=== PATIENT | male | born 1980 | race Caucasian/White ===

== ENCOUNTER 2021-01-05 14:41 | Emergency (ER) | payer OTHER ==
--- NOTE | 2021-01-05 14:56 | ED Physician Documentation ---
PD HPI CHEST PAIN - Stated complaint Stated Complaint: LEFT ARM PX, CP, SOA - Chief complaint Chief Complaint: Cardiac - History obtained from History obtained from: Patient - History of Present Illness Timing - onset: How many hours ago (1) Timing - onset during: Rest Timing - duration: Hours (1) Timing - details: Abrupt onset (while at rest, without injury), Still present Quality: Aching, Sharp, Pain Location: Left chest Radiation: Back Improved by: No: Rest Worsened by: Inspiration, Movement. No: Eating, Palpation Associated symptoms: Shortness of air. No: Nausea, Vomiting, Feeling faint / dizzy, Palpitations, Cough Similar symptoms before: Has not had sx before Recently seen: Not recently seen Review of Systems Constitutional: denies: Fever, Chills Nose: denies: Rhinorrhea / runny nose, Congestion Throat: denies: Sore throat Cardiac: denies: Palpitations, Pedal edema, Calf pain Respiratory: denies: Cough, Wheezing GI: denies: Abdominal Pain, Nausea, Vomiting, Diarrhea Skin: denies: Rash, Lesions Neurologic: denies: Altered mental status, Headache PD PAST MEDICAL HISTORY - Past Medical History Cardiovascular: Atrial fibrillation Respiratory: None Neuro: None Endocrine/Autoimmune: None GI: None - Past Surgical History Past Surgical History: Yes HEENT: Tonsil/Adenoidectomy - Present Medications Home Medications: Ambulatory Orders Medication Instructions Recorded Confirmed Docusate Sodium 100Mg Capsule 100 mg PO DAILY #20 cap 01/05/21 [Colace 100Mg Capsule] Ibuprofen [Motrin] 600 mg PO TID PRN #20 tab 01/05/21 Oxycodone HCl/Acetaminophen 1 each PO Q6H PRN #14 tablet 01/05/21 [Percocet 5-325 mg Tablet] - Allergies Allergies/Adverse Reactions: Allergies Allergy/AdvReac Type Severity Reaction Status Date / Time No Known Drug Allergies Allergy Verified 01/05/21 15:33 - Social History Does the pt smoke?: Yes Smoking Status: Current every day smoker Does the pt drink ETOH?: No Does the pt have substance abuse?: No - Immunizations Immunizations are current?: No PD ED PE NORMAL - Vitals Vital signs reviewed: Yes - General General: Alert and oriented X 3, Well developed/nourished, Other (appears in considerable pain with grimacing. ) - HEENT HEENT: Pharynx benign - Neck Neck: Supple, no meningeal sign, No adenopathy - Cardiac Cardiac: RRR, No murmur - Respiratory Respiratory: No respiratory distress, Clear bilaterally, Other (no chestwall tenderness. ) - Abdomen Abdomen: Soft, Non tender - Back Back: No CVA TTP, No spinal TTP - Derm Derm: Normal color, Warm and dry, No rash - Extremities Extremities: No deformity, No tenderness to palpate, No edema, No calf tenderness / cord - Neuro Neuro: Alert and oriented X 3, No motor deficit, Normal speech Results - Vitals Vitals: Vital Signs - 24 hr 01/05/21 01/05/21 01/05/21 14:45 15:30 16:00 Temperature 37.0 C Heart Rate 73 68 79 Respiratory 18 18 18 Rate Blood Pressure 165/96 H 129/87 H 149/82 H O2 Saturation 100 96 96 01/05/21 01/05/21 01/05/21 16:30 17:00 17:30 Temperature Heart Rate 78 63 60 Respiratory 19 16 18 Rate Blood Pressure 138/79 H 135/94 H 148/100 H O2 Saturation 96 96 01/05/21 18:30 Temperature Heart Rate 73 Respiratory 16 Rate Blood Pressure 128/87 H O2 Saturation 99 Oxygen O2 Source Room air - EKG (time done) 14:45 Rate: Rate (enter#) (72) Rhythm: NSR [place]: Normal Intervals: Normal [place] QRS: Normal Ischemia: Normal ST segments. No: ST elevation c/w ischemia, ST depression - Labs Labs: Laboratory Tests 01/05/21 01/05/21 01/05/21 15:07 15:07 15:07 WBC 11.2 H RBC 5.39 Hgb 16.7 Hct 49.0 MCV 90.9 MCH 31.0 MCHC 34.1 RDW 12.4 Plt Count 287 MPV 10.4 Neut # (Auto) 7.5 H Lymph # (Auto) 2.3 [place] # (Auto) 1.0 Eos # (Auto) 0.3 Baso # (Auto) 0.1 Absolute Nucleated RBC 0.00 Nucleated RBC % 0.0 D-Dimer Sodium 138 Potassium 3.8 Chloride 103 Carbon Dioxide 25 Anion Gap 10.0 BUN 14 Creatinine 1.0 Estimated GFR (MDRD) 82 L Glucose 95 Calcium 9.4 Total Bilirubin 0.7 AST 23 ALT 23 Alkaline Phosphatase 85 Troponin I High Sens 5.0 B-Natriuretic Peptide Total Protein 8.3 H Albumin 4.5 Globulin 3.8 Albumin/Globulin Ratio 1.2 Lipase 32 01/05/21 01/05/21 01/05/21 15:07 15:07 16:59 WBC RBC Hgb Hct MCV MCH MCHC RDW Plt Count MPV Neut # (Auto) Lymph # (Auto) [place] # (Auto) Eos # (Auto) Baso # (Auto) Absolute Nucleated RBC Nucleated RBC % D-Dimer 211.4 Sodium Potassium Chloride Carbon Dioxide Anion Gap BUN Creatinine Estimated GFR (MDRD) Glucose Calcium Total Bilirubin AST ALT Alkaline Phosphatase Troponin I High Sens 5.5 B-Natriuretic Peptide 15 Total Protein Albumin Globulin Albumin/Globulin Ratio Lipase - Rads (name of study) chest xray Radiology: Prelim report reviewed (normal/no acute process. ), See rad report CT-A aorta/chest Radiology: Prelim report reviewed (no aortic abnormalities, and no apparent PEs nor other acute process. ), See rad report PD MEDICAL DECISION MAKING - ED course Complexity details: reviewed results (no acute process seen, including CT-A chest for concern of dissection. ), re-evaluated patient (improved pain with IV meds. ), considered differential (abrupt significant pain. concern for NV, PTX, aortic process. Low clinical risk for PE. Has history of HTN, so consider aortic process. ), d/w patient Departure - Departure Disposition: 01 Home, Self Care Clinical Impression: Left-sided chest pain Condition: Stable Record reviewed to determine appropriate education?: Yes Instructions: ED Chest Pain Pleurisy Prescriptions: Docusate Sodium 100Mg Capsule [Colace 100Mg Capsule] 100 mg PO DAILY #20 cap Ibuprofen [Motrin] 600 mg PO TID PRN #20 tab PRN Reason: Pain Oxycodone HCl/Acetaminophen [Percocet 5-325 mg Tablet] 1 each PO Q6H PRN #14 tablet PRN Reason: pain Comments: There is no evidence for serious causes of your chest pain based on your blood test, EKG, chest x-ray, chest CT. At this point I would have to presume a musculoskeletal pain or some inflammation around the lung called pleurisy. These are both treated with anti-inflammatories and pain medicine and should improve over the next few days. Forms: Activity restrictions Discharge Date/Time: 01/05/21 18:40
[2021-01-05] MEDS ORDERED: KETOROLAC 30 MG/ML VIAL IVP STA (15:06)
[2021-01-05] MEDS ORDERED: HYDROmorphone 1 MG/ML CARPUJECT IVP STA ×2 (15:06→18:05)
[2021-01-05] MEDS ORDERED: MAG HYDROX/AL HYDROX/SIMETH 30 ML UDC PO STA (15:08)
[2021-01-05 15:18] LABS: BASOPHILS # (AUTO) 0.1 10^3/uL (0.0-0.1); BASOPHILS % (AUTO) 0.9 %; EOSINOPHILS # (AUTO) 0.3 10^3/uL (0.0-0.7); EOSINOPHILS % (AUTO) 2.2 %; HGB - HEMOGLOBIN 16.7 g/dL (14.0-18.0); LYMPHOCYTES # (AUTO) 2.3 10^3/uL (1.5-3.5); LYMPHOCYTES % (AUTO) 20.8 %; MEAN CORPUSCULAR HGB CONC 34.1 g/dL (32.0-36.0); MEAN CORPUSCULAR VOLUME 90.9 fL (80.0-94.0); MEAN PLATELET VOLUME 10.4 fL (7.4-11.4); NEUTROPHILS # (AUTO) 7.5 10^3/uL (1.5-6.6); NEUTROPHILS % (AUTO) 66.7 %; PLT - PLATELET COUNT 287 10^3/uL (130-450); RED BLOOD COUNT 5.39 10^6/uL (4.70-6.10); RED CELL DISTRIBUTION WIDTH 12.4 % (12.0-15.0); WHITE BLOOD COUNT 11.2 x10^3/uL (4.8-10.8)
[2021-01-05 15:26] LABS: ALBUMIN 4.5 g/dL (3.2-5.5); ALBUMIN/GLOBULIN RATIO 1.2 (1.0-2.2); BILIRUBIN,TOTAL 0.7 mg/dL (0.2-1.0); CALCIUM 9.4 mg/dL (8.5-10.3); POTASSIUM 3.8 mmol/L (3.5-5.0); TOTAL PROTEIN 8.3 g/dL (6.7-8.2)
--- NOTE | 2021-01-05 15:49 | XRAY Report ---
PROCEDURE: Chest 1 View X-Ray INDICATIONS: Chest pain TECHNIQUE: One view of the chest was acquired. COMPARISON: 2 view chest 09/29/2014. FINDINGS: Surgical changes and devices: None. Lungs and pleura: No pleural effusions or pneumothorax. Lungs are clear. Mediastinum: Mediastinal contours appear normal. Heart size is normal. Bones and chest wall: No suspicious bony lesions. Overlying soft tissues appear unremarkable. IMPRESSION: Large body habitus, reduced inspiratory volume, clear lungs when these factors are taken into account . A source of chest pain is not seen. Reviewed by: Toño Watkins MD on 01/05/2021 3:47 PM PDT Approved by: Toño Watkins MD on 01/05/2021 3:47 PM PDT Station ID: [id number]
[2021-01-05] MEDS ORDERED: IOPAMIDOL-300 100 ML VIAL ONE ×2 (16:13→16:35)
--- NOTE | 2021-01-05 17:12 | CT Report ---
PROCEDURE: ANGIO CHEST W/WO INDICATIONS: abrupt pleuritic left CP; eval for aorta CONTRAST: IV CONTRAST: Isovue 300 ml: 180 PO CONTRAST: *NO PO CONTRAST TECHNIQUE: After the administration of intravenous contrast, 2 mm thick sections acquired from the pulmonary api evelio to the posterior costophrenic angles. 3-dimensional maximum intensity projection (MIP) coronal a nd sagittal reformats were then acquired through the thorax. For radiation dose reduction, the follow ing was used: automated exposure control, adjustment of mA and/or kV according to patient size. COMPARISON: Single view chest same day reviewed. Two-view chest 09/29/2014. FINDINGS: Image quality: Excellent. Pulmonary arteries: Pulmonary arteries are normal in size, and demonstrate no intraluminal filling d efects to suggest central pulmonary embolism. Lungs and pleura: Lungs are clear. No pleural effusions or pneumothorax. Central and peripheral ai rways are patent. Mediastinum: Heart size is normal, without pericardial effusion. No mediastinal or hilar adenopathy . Thoracic aorta is normal in caliber and enhancement. Esophagus is normal in caliber, without hiat al hernia. Bones and chest wall: No suspicious bony lesions. Ribs and thoracic spine appear intact throughout. The thyroid is normal where well seen. No axillary or supraclavicular adenopathy. Abdomen: Visualized upper abdominal solid organs appear normal in the early arterial phase of enhanc ement. IMPRESSION: No aortic aneurysm or dissection found. A source of abrupt onset pleuritic left-sided chest pain is n ot seen. No pulmonary embolus is identified. Please note that the current examination was optimized f or aortic phase visualization rather than pulmonary embolus detection, however. Reviewed by: Toño Watkins MD on 01/05/2021 5:11 PM PDT Approved by: Toño Watkins MD on 01/05/2021 5:11 PM PDT Station ID: [id number]
[2021-01-05] MEDS ORDERED: IOPAMIDOL-300 100 ML VIAL IVP ONE (18:50)
[2021-01-05 19:19] VITALS: BP 128/87
== END 2021-01-05 18:40 | disposition home or self-care (01) ==
LOC: ED 14:41
DX: R07.89 Other chest pain (principal); I48.91 Unspecified atrial fibrillation; F17.200 Nicotine dependence, unspecified, uncomplicated
CPT/HCPCS: 36415; 71045; 71275; 80053; 83690; 83880; 84484; 85025; 85379; 93005; 96374; 96375; 96376; 99284; A9270; J1170; Q9967

== ENCOUNTER 2021-03-28 20:17 | Emergency (ER) | payer OTHER ==
[2021-03-28] MEDS ORDERED: HYDROcod/ACET 5/325 Prepack 4 PO STA (22:20)
[2021-03-28] MEDS ORDERED: BUFFERED LIDOCAINE 10 ML SYRINGE SUBQ STA (22:20)
[2021-03-28] MEDS ORDERED: AMOX/CLAV 875 MG/125 MG TABLET PO STA (22:20)
--- NOTE | 2021-03-28 22:21 | ED Physician Documentation ---
PD HPI WOUND RECHECK - Stated complaint Stated Complaint: MOUTH PX - Chief complaint Chief Complaint: Wound - Histroy obtained from History obtained from: Patient (He has an abscess, hard to tell if it is from a dental infection versus an intranasal infection, it started yesterday and is worse today. No history of MRSA. No fevers.) Review of Systems Constitutional: reports: Reviewed and negative Eyes: reports: Reviewed and negative Ears: reports: Reviewed and negative PD PAST MEDICAL HISTORY - Past Medical History Cardiovascular: Atrial fibrillation Respiratory: None Neuro: None Endocrine/Autoimmune: None GI: None - Past Surgical History Past Surgical History: Yes HEENT: Tonsil/Adenoidectomy - Present Medications Home Medications: Ambulatory Orders Medication Instructions Recorded Confirmed Amox/Clav 875/125 [Augmentin] 1 each PO Q12H #20 tablet 03/28/21 HYDROcod/ACETAM 5/325 [[place] 5/325] 1 - 2 tab PO Q6H PRN #15 tablet 03/28/21 - Allergies Allergies/Adverse Reactions: Allergies Allergy/AdvReac Type Severity Reaction Status Date / Time No Known Drug Allergies Allergy Verified 03/28/21 20:45 - Social History Does the pt smoke?: Yes Smoking Status: Current every day smoker Does the pt drink ETOH?: No Does the pt have substance abuse?: No - Immunizations Immunizations are current?: No PD ED PE NORMAL - Vitals Vital signs reviewed: Yes - General General: Alert and oriented X 3, No acute distress - HEENT HEENT: Other (There is some vague swelling just to the left of the philtrum on the face. It seems to be probably from bad tooth #9 and there is swelling of the gumline there.) - Neck Neck: Supple, no meningeal sign, No bony TTP - Neuro Neuro: Alert and oriented X 3, Normal speech Results - Vitals Vitals: Vital Signs - 24 hr 03/28/21 20:41 Temperature 36.9 C Heart Rate 74 Respiratory 18 Rate Blood Pressure 144/88 H O2 Saturation 95 Oxygen O2 Source Room air Procedures - Abscess I&D (location) Dental abscess Preparation: Lidocaine 1% Incision: Needle aspiration Other: Pt tolerated well PD MEDICAL DECISION MAKING - ED course ED course: I am prescribing a short course of short-acting opioid pain medication for this patient. 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 I have discussed that the opioids are for short term therapy only, and will not be refilled from the ED. Departure - Departure Disposition: 01 Home, Self Care Clinical Impression: Dental abscess, Facial cellulitis Condition: Good Record reviewed to determine appropriate education?: Yes Instructions: ED Dental Abscess Facial Cellulitis Follow-Up: ROLLY FATIMA [Physician No Access] - Prescriptions: Amox/Clav 875/125 [Augmentin] 1 each PO Q12H #20 tablet HYDROcod/ACETAM 5/325 [[place] 5/325] 1 - 2 tab PO Q6H PRN #15 tablet PRN Reason: Pain Comments: Follow-up with the oral surgeon, call his office tomorrow. Return for new or worsening symptoms. Especially if swelling continues to increase or if you run a fever. I am prescribing a short course of narcotic pain medication for you. These are potentially dangerous and addictive medications that should be used carefully. These medications may constipate you. Take an [id number] stool softener (docusate) twice daily with plenty of water while taking these medications. If you go 24 hours without a bowel movement, take [id number] miralax, per package instructions. Do not drink or drive while taking these medications. If you received narcotic or sedating medications while in the emergency department, do not drive for 24 hours. Store this medication in a safe, secure place and out of reach of children. It is a violation of federal law to give or sell this medication to another person or to use in a manner other than prescribed. The ED will not refill narcotic prescriptions, including prescriptions lost or stolen. To dispose of unwanted medications: 1. [facility] at [address] in [place] has a medication drop box. They accept prescription medications (in pill form) Sunday through Sunday 9:00 a.m. to 5:00 p.m. 2. The [facility] [employer] accepts prescription medications (in pill form only) for disposal year round. Call for more information. 3. Contact the [facility] for the next [facility] sponsored prescription drug collection event. , [phone], or [phone]; Note that many narcotic pain relievers also contain Tylenol/acetaminophen. Please ensure that your total dose of acetaminophen from all sources does not exceed 3 g (3000 mg) per day.
[2021-03-28 22:32] VITALS: BP 156/106
== END 2021-03-28 22:34 | disposition home or self-care (01) ==
LOC: ED 20:17
DX: K04.7 Periapical abscess without sinus (principal); L03.211 Cellulitis of face; F17.200 Nicotine dependence, unspecified, uncomplicated
CPT/HCPCS: 41800; 99282; 99283; A9270

== ENCOUNTER 2021-04-16 09:54 | Emergency (ER) | payer OTHER ==
[2021-04-16] MEDS ORDERED: DEXAMETHASONE 10 MG/ML VIAL IM STA (11:20)
--- NOTE | 2021-04-16 12:10 | ED Physician Documentation ---
History of Present Illness - Stated complaint Stated Complaint: SOA/SORE THROAT - Chief complaint Chief Complaint: Resp - History obtained from History obtained from: Patient - Additonal information Additional information: 41-year-old man with past medical history of pneumonia, former smoker, presents with cough productive of clear sputum, nasal congestion and sore throat over the past couple of days, progressively worsening, with subjective shortness of breath this morning. Patient denies fevers, leg swelling, blood in the cough, nausea. no travel or sick contacts. Review of Systems Ten Systems: 10 systems reviewed and negative Constitutional: reports: Fatigue. denies: Fever Nose: reports: Congestion Respiratory: reports: Dyspnea, Cough PD PAST MEDICAL HISTORY - Past Medical History Cardiovascular: Atrial fibrillation Respiratory: None Neuro: None Endocrine/Autoimmune: None GI: None - Past Surgical History Past Surgical History: Yes HEENT: Tonsil/Adenoidectomy - Present Medications Home Medications: Ambulatory Orders Medication Instructions Recorded Confirmed Amox/Clav 875/125 [Augmentin] 1 each PO Q12H #20 tablet 03/28/21 HYDROcod/ACETAM 5/325 [[place] 5/325] 1 - 2 tab PO Q6H PRN #15 tablet 03/28/21 - Allergies Allergies/Adverse Reactions: Allergies Allergy/AdvReac Type Severity Reaction Status Date / Time No Known Drug Allergies Allergy Verified 04/16/21 10:01 - Social History Does the pt smoke?: Yes Smoking Status: Current every day smoker Does the pt drink ETOH?: No Does the pt have substance abuse?: No - Immunizations Immunizations are current?: No PD ED PE NORMAL - Vitals Vital signs reviewed: Yes - General General: Alert and oriented X 3, No acute distress, Well developed/nourished - HEENT HEENT: Atraumatic, PERRL, EOMI, Moist mucous membranes, Pharynx benign, Other (Mild oropharyngeal erythema. Mild nasal congestion) - Neck Neck: Supple, no meningeal sign - Cardiac Cardiac: RRR - Respiratory Respiratory: No respiratory distress, Clear bilaterally - Abdomen Abdomen: Non tender, Non distended - Derm Derm: Normal color, Warm and dry - Extremities Extremities: No deformity, No edema - Neuro Neuro: Alert and oriented X 3 - Psych Psych: Normal mood, Normal affect Results - Vitals Vitals: Vital Signs - 24 hr 04/16/21 04/16/21 09:57 10:42 Temperature 37.1 C Heart Rate 83 80 Respiratory 22 20 Rate Blood Pressure 128/75 131/71 H O2 Saturation 95 96 Oxygen O2 Source Room air PD MEDICAL DECISION MAKING - ED course ED course: 41-year-old man presents with viral upper respiratory symptoms for the past couple of days. Chest x-ray without signs of pneumonia. Patient is well- appearing oxygen saturation 98% on room air on my examination. Discussed conservative measures with the patient and education was given. Return precautions given. He will follow up with his doctor in [place]. Departure - Departure Disposition: 01 Home, Self Care Clinical Impression: Viral URI Condition: Good Instructions: ED Viral Syndrome Comments: You were seen in the emergency department for a viral upper respiratory infection. Your chest x-ray did not show signs of pneumonia. We did give you a strong steroid treatment that helps reduce inflammation in the airways and will promote the healing process. Make sure that you hydrate and drink 8 to 10 glasses of water daily. Get a coolmist humidifier to put by the bedside when you go to sleep nightly. Use oxymetazoline spray in the nose for congestion twice daily as needed. Return to the emergency department if you have any new or worsening symptoms or other concerns.Follow-up with your primary doctor in [place]. Forms: Activity restrictions
[2021-04-16 12:24] VITALS: BP 129/75
--- NOTE | 2021-04-16 12:36 | XRAY Report ---
PROCEDURE: Chest 2 View X-Ray INDICATIONS: soa, cough sore th TECHNIQUE: 2 view(s) of the chest. COMPARISON: None. FINDINGS: Surgical changes and devices: None. Lungs and pleura: No pleural effusions or pneumothorax. Lungs are clear. Mediastinum: Mediastinal contours are normal. Heart size is normal. Bones and chest wall: No suspicious bony abnormalities. Soft tissues appear unremarkable. IMPRESSION: No acute cardiopulmonary findings Reviewed by: Khris Mullins MD on 04/16/2021 11:35 AM [facility] Approved by: Khris Mullins MD on 04/16/2021 11:35 AM [facility] Station ID: [id number]
== END 2021-04-16 12:26 | disposition home or self-care (01) ==
LOC: ED 09:54
DX: J06.9 Acute upper respiratory infection, unspecified (principal); I48.91 Unspecified atrial fibrillation; F17.200 Nicotine dependence, unspecified, uncomplicated
CPT/HCPCS: 99283; 99284

== ENCOUNTER 2021-04-19 09:08 | Outpatient (CLI) | payer OTHER | END 2021-04-19 23:59 | disposition home or self-care (01) | LOC: LAB.N 09:08 | PROVIDERS: ATTEND Physician Assistant Medical | DX: R06.02 Shortness of breath (principal); Z20.822 Contact with and (suspected) exposure to COVID-19 ==

== ENCOUNTER 2021-11-10 09:02 | Emergency (ER) | payer MEDICAID, OTHER ==
[2021-11-10 09:11] VITALS: BP 144/78
--- NOTE | 2021-11-10 09:45 | XRAY Report ---
PROCEDURE: Chest 1 View X-Ray INDICATIONS: chest pain TECHNIQUE: One view of the chest was acquired. COMPARISON: Chest x-ray 04/16/2021 FINDINGS: Surgical changes and devices: None. Lungs and pleura: No pleural effusions or pneumothorax. Lungs are clear. Mediastinum: Mediastinal contours appear normal. Heart size is normal. Bones and chest wall: No suspicious bony lesions. Overlying soft tissues appear unremarkable. IMPRESSION: No acute pulmonary process. Reviewed by: Anny Benavides MD on 11/10/2021 9:44 AM [facility] Approved by: Anny Benavides MD on 11/10/2021 9:44 AM [facility] Station ID: [id number]
--- NOTE | 2021-11-10 09:46 | ED Physician Documentation ---
PD HPI HEENT - Stated complaint Stated Complaint: CHEST PX/COUGH - Chief complaint Chief Complaint: Resp - History obtained from History obtained from: Patient - Additional information Additional information: The patient comes emergency department chief complaint of upper respiratory symptoms and dental pain. He states that he has had rhinorrhea, a cough, and a burning in his chest with tingling in his back since last night. He denies any shortness of breath. He has felt a feeling of being hot and cold and has gotten chills. No sick contacts. He is vaccinated for Covid. He states he does not wish to be tested for a viral illness, including Covid, today, but would like to make sure that he does not have pneumonia, because he is had this before. He also complains of pain and intermittent swelling in his left mandibular gingiva. The patient has very poor dentition and has a wisdom tooth that is still in place back there, but broken, and he states that he cannot get to the dentist in a timely manner. He feels as though he needs antibiotics again. No other complaints at this time. Review of Systems Ten Systems: 10 systems reviewed and negative Constitutional: reports: Reviewed and negative Eyes: reports: Reviewed and negative Ears: reports: Reviewed and negative Nose: reports: Rhinorrhea / runny nose, Congestion Throat: reports: Dental pain / toothache Cardiac: reports: Reviewed and negative Respiratory: reports: Cough GI: reports: Reviewed and negative : reports: Reviewed and negative Skin: reports: Reviewed and negative Musculoskeletal: reports: Reviewed and negative Neurologic: reports: Reviewed and negative Psychiatric: reports: Reviewed and negative Endocrine: reports: Reviewed and negative Immunocompromised: reports: Reviewed and negative PD PAST MEDICAL HISTORY - Past Medical History Cardiovascular: Atrial fibrillation Respiratory: None Neuro: None Endocrine/Autoimmune: None GI: None - Past Surgical History Past Surgical History: Yes HEENT: Tonsil/Adenoidectomy - Present Medications Home Medications: Ambulatory Orders Medication Instructions Recorded Confirmed Amox/Clav 875/125 [Augmentin] 1 each PO Q12H #20 tablet 03/28/21 HYDROcod/ACETAM 5/325 [[place] 5/325] 1 - 2 tab PO Q6H PRN #15 tablet 03/28/21 Amoxicillin 500 mg PO TID 7 Days #21 cap 11/10/21 - Allergies Allergies/Adverse Reactions: Allergies Allergy/AdvReac Type Severity Reaction Status Date / Time No Known Drug Allergies Allergy Verified 04/16/21 10:01 - Social History Does the pt smoke?: Yes Smoking Status: Current every day smoker Does the pt drink ETOH?: No Does the pt have substance abuse?: No - Immunizations Immunizations are current?: No PD ED PE NORMAL - Vitals Vital signs reviewed: Yes - General General: Alert and oriented X 3, No acute distress, Well developed/nourished - HEENT HEENT: Atraumatic, PERRL, EOMI, Moist mucous membranes, Other (Poor dentition. Mild edema over left mandibular gingival and buccal mucosa.) - Neck Neck: Supple, no meningeal sign - Cardiac Cardiac: RRR, No murmur - Respiratory Respiratory: No respiratory distress, Clear bilaterally - Abdomen Abdomen: Soft, Non tender, Non distended - Derm Derm: Normal color, Warm and dry, No rash - Extremities Extremities: No deformity, No edema, No calf tenderness / cord - Neuro Neuro: Alert and oriented X 3 - Psych Psych: Normal mood, Normal affect Results - Vitals Vitals: Vital Signs - 24 hr 11/10/21 09:07 Temperature 37 C Heart Rate 78 Respiratory 18 Rate Blood Pressure 144/78 H O2 Saturation 99 Oxygen O2 Source Room air - Rads (name of study) chest xr Radiology: Final report received, EMP read indepedently, See rad report (nad) PD MEDICAL DECISION MAKING - ED course Complexity details: reviewed results, re-evaluated patient, considered differential, d/w patient ED course: Chest x-ray was negative. I discussed with the patient that his symptoms are consistent with a viral illness. I will give him some amoxicillin for his dental infection. We have discussed the usual indications for return. Departure - Departure Disposition: 01 Home, Self Care Clinical Impression: Dental infection URI (upper respiratory infection) Qualifiers: URI type: unspecified viral URI Qualified Code(s): J06.9 - Acute upper respiratory infection, unspecified Condition: Stable Instructions: ED Viral Syndrome, ED Abscess Dental Prescriptions: Amoxicillin 500 mg PO TID 7 Days #21 cap Comments: Your chest x-ray looks good. 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
== END 2021-11-10 10:16 | disposition home or self-care (01) ==
LOC: ED 09:02
DX: J06.9 Acute upper respiratory infection, unspecified (principal); K04.7 Periapical abscess without sinus; F17.200 Nicotine dependence, unspecified, uncomplicated
CPT/HCPCS: 99282; 99283

== ENCOUNTER 2022-03-14 09:55 | Emergency (ER) | payer MEDICAID ==
[2022-03-14] MEDS ORDERED: AMOXICILLIN 250 MG CAPSULE PO STA (10:51)
--- NOTE | 2022-03-14 10:56 | ED Physician Documentation ---
PD HPI HEENT - Stated complaint Stated Complaint: SWOLLEN FACE - Chief complaint Chief Complaint: Heent - History obtained from History obtained from: Patient - Additional information Additional information: Patient comes emergency department chief complaint of facial pain and swelling that he noticed this morning when he woke up. Patient has chronically bad teeth, he states, and frequently has issues with dental infections. He states he just got [employer] insurance and is hoping to see a dentist soon. He denies further complaints at this time. No fevers or chills. No swelling in his throat or tongue. No intraoral drainage. Review of Systems Ten Systems: 10 systems reviewed and negative Constitutional: reports: Reviewed and negative Eyes: reports: Reviewed and negative Ears: reports: Reviewed and negative Nose: reports: Reviewed and negative Throat: reports: Dental pain / toothache, Reviewed and negative Cardiac: reports: Reviewed and negative Respiratory: reports: Reviewed and negative GI: reports: Reviewed and negative : reports: Reviewed and negative Skin: reports: Reviewed and negative Musculoskeletal: reports: Reviewed and negative Neurologic: reports: Reviewed and negative Psychiatric: reports: Reviewed and negative Endocrine: reports: Reviewed and negative Immunocompromised: reports: Reviewed and negative PD PAST MEDICAL HISTORY - Past Medical History Cardiovascular: Atrial fibrillation Respiratory: None Neuro: None Endocrine/Autoimmune: None GI: None - Past Surgical History Past Surgical History: Yes HEENT: Tonsil/Adenoidectomy - Present Medications Home Medications: Ambulatory Orders Medication Instructions Recorded Confirmed Amox/Clav 875/125 [Augmentin] 1 each PO Q12H #20 tablet 03/28/21 HYDROcod/ACETAM 5/325 [[place] 5/325] 1 - 2 tab PO Q6H PRN #15 tablet 03/28/21 Amoxicillin 500 mg PO TID 7 Days #21 cap 11/10/21 Amoxicillin 500 mg PO TID 7 Days #21 cap 03/14/22 HYDROcod/ACETAM 5/325 [[place] 5/325] 1 - 2 tablet PO Q6H PRN #14 tablet 03/14/22 - Allergies Allergies/Adverse Reactions: Allergies Allergy/AdvReac Type Severity Reaction Status Date / Time No Known Drug Allergies Allergy Verified 03/14/22 09:59 - Social History Does the pt smoke?: Yes Smoking Status: Current every day smoker Does the pt drink ETOH?: No Does the pt have substance abuse?: No - Immunizations Immunizations are current?: No PD ED PE NORMAL - Vitals Vital signs reviewed: Yes - General General: Alert and oriented X 3, No acute distress, Well developed/nourished - HEENT HEENT: Atraumatic, PERRL, EOMI, Moist mucous membranes, Other (Mild right facial swelling over maxillary area and adjacent to nose. Moderate gingival edema on buccal aspect with mild fluctuance. Poor dentition in general. No obvious drainage. Handling secretions well without tongue swelling.) - Respiratory Respiratory: No respiratory distress, Other (No stridor) - Derm Derm: Normal color, Warm and dry, No rash - Extremities Extremities: No deformity - Neuro Neuro: Alert and oriented X 3 - Psych Psych: Normal mood, Normal affect Results - Vitals Vitals: Vital Signs - 24 hr 03/14/22 09:59 Temperature 37.0 C Heart Rate 63 Respiratory 19 Rate Blood Pressure 150/87 H O2 Saturation 97 Oxygen O2 Source Room air PD MEDICAL DECISION MAKING - ED course Complexity details: considered differential, d/w patient ED course: The patient was given a dose of amoxicillin in the emergency department, and prescription for the same was sent to the pharmacy of his choice. We have discussed the need for definitive management by the dentist as soon as possible. Departure - Departure Disposition: 01 Home, Self Care Clinical Impression: Dental infection Condition: Stable Instructions: ED Tooth Pain Prescriptions: Amoxicillin 500 mg PO TID 7 Days #21 cap HYDROcod/ACETAM 5/325 [[place] 5/325] 1 - 2 tablet PO Q6H PRN #14 tablet PRN Reason: Pain Comments: Your prescription has been electronically transmitted to [facility] pharmacy in [place]. Please take all of the antibiotics as directed until the course is complete. You may use a hot tea bag to encourage drainage from the area. Please make an appointment with a dentist as soon as possible to follow-up.
[2022-03-14 11:07] VITALS: BP 146/91
== END 2022-03-14 11:15 | disposition home or self-care (01) ==
LOC: ED 09:55
DX: K04.7 Periapical abscess without sinus (principal); F17.200 Nicotine dependence, unspecified, uncomplicated
CPT/HCPCS: 99282; 99283; A9270

== ENCOUNTER 2022-08-10 15:27 | Emergency (ER) | payer MEDICAID, OTHER ==
[2022-08-10] MEDS ORDERED: ACETAMINOPHEN 325 MG TABLET PO STA (15:53)
[2022-08-10] MEDS ORDERED: IPRATROPIUM/ALBUTEROL 3 ML NEB INH STA (16:03)
--- NOTE | 2022-08-10 16:29 | ED Physician Documentation ---
PD HPI DYSPNEA - Stated complaint Stated Complaint: SOA - Chief complaint Chief Complaint: Resp - History obtained from History obtained from: Patient - Additional information Additional information: Patient is a 42-year-old male presenting for evaluation of shortness of breath and cough that is been present for 2 days. He reports feeling pain in the right upper back when he coughs as well as feeling fatigued. Patient came down with COVID 2 weeks ago and has been feeling better up until a few days ago. He does have a history of asthma. He denies smoking.He denies any known sick contacts. He did try [id number] DayQuil this morning without any improvement.His cough is productive of clear to yellow sputum. Review of Systems Constitutional: reports: Fever Nose: reports: Congestion Cardiac: denies: Chest pain / pressure Respiratory: reports: Dyspnea, Cough GI: denies: Abdominal Pain, Vomiting : denies: Dysuria Neurologic: denies: Headache PD PAST MEDICAL HISTORY - Past Medical History Cardiovascular: Atrial fibrillation Respiratory: None Neuro: None Endocrine/Autoimmune: None GI: None - Past Surgical History Past Surgical History: Yes HEENT: Tonsil/Adenoidectomy - Present Medications Home Medications: Ambulatory Orders Medication Instructions Recorded Confirmed Albuterol Sulf [Ventolin Hfa 1 - 2 puffs INH Q4HR PRN #18 gm 08/10/22 Inhaler] guaiFENesin/DEXTROMETHORPHAN 10 ml PO Q6H #120 ml 08/10/22 [Robitussin Dm] predniSONE [Deltasone] 60 mg PO DAILY 4 Days #12 tablet 08/10/22 - Allergies Allergies/Adverse Reactions: Allergies Allergy/AdvReac Type Severity Reaction Status Date / Time No Known Drug Allergies Allergy Verified 08/10/22 15:39 - Social History Does the pt smoke?: Yes Smoking Status: Current every day smoker Does the pt drink ETOH?: No Does the pt have substance abuse?: No - Immunizations Immunizations are current?: No PD ED PE NORMAL - General General: Alert and oriented X 3, No acute distress, Well developed/nourished - HEENT HEENT: Atraumatic, Moist mucous membranes, Pharynx benign - Neck Neck: Supple, no meningeal sign - Cardiac Cardiac: RRR, Strong equal pulses - Respiratory Respiratory: No respiratory distress, Other (Diminished breath sounds at the bases, end expiratory wheezing) - Abdomen Abdomen: Soft, Non tender - Derm Derm: Warm and dry Results - Vitals Vitals: Vital Signs - 24 hr 08/10/22 08/10/22 08/10/22 15:34 16:25 16:43 Temperature 37.9 C Heart Rate 76 81 91 Respiratory 18 18 18 Rate Blood Pressure 154/73 H 103/66 O2 Saturation 97 96 08/10/22 17:24 Temperature 37.0 C Heart Rate 78 Respiratory 18 Rate Blood Pressure 137/76 H O2 Saturation 95 Oxygen O2 Source Room air - Labs Labs: Laboratory Tests 08/10/22 16:04 Nasal Adenovirus (PCR) NOT DETECTED Nasal B. parapertussis DNA (PCR) NOT DETECTED Nasal Coronavir 229E PCR NOT DETECTED Nasal Coronavir HKU1 PCR NOT DETECTED Nasal Coronavir NL63 PCR NOT DETECTED Nasal Coronavir OC43 PCR NOT DETECTED Nasal Enterovir/Rhinovir PCR NOT DETECTED Nasal Influenza A H3 PCR DETECTED A Nasal Influenza B PCR NOT DETECTED Nasal Parainfluen 1 PCR NOT DETECTED Nasal Parainfluen 2 PCR NOT DETECTED Nasal Parainfluen 3 PCR NOT DETECTED Nasal Parainfluen 4 PCR NOT DETECTED Nasal RSV (PCR) NOT DETECTED Nasal B.pertussis DNA PCR NOT DETECTED Nasal C.pneumoniae (PCR) NOT DETECTED Paul Human Metapneumo PCR NOT DETECTED Nasal M.pneumoniae (PCR) NOT DETECTED Nasal SARS-CoV-2 (PCR) NOT DETECTED PD MEDICAL DECISION MAKING - ED course Complexity details: reviewed results, re-evaluated patient, d/w patient ED course: Patient presenting for evaluation of cough, congestion and feeling short of breath. He has a low-grade fever here.Otherwise his vitals are stable. He has mild wheezing on exam and was given a breathing treatment with improvement. His chest x-ray is clear with no signs of pneumonia. His respiratory panel is positive for influenza A. Will start on Prednisone and albuterol for bronchitis. Discussed continuing with supportive care. Patient is advised on concerning symptoms to return for. Departure - Departure Disposition: 01 Home, Self Care Clinical Impression: Influenza A, Bronchitis Condition: Stable Instructions: ED Bronchitis Asthmatic, ED Flu Prescriptions: Albuterol Sulf [Ventolin Hfa Inhaler] 1 - 2 puffs INH Q4HR PRN #18 gm PRN Reason: Shortness Of Air/Wheezing predniSONE [Deltasone] 60 mg PO DAILY 4 Days #12 tablet guaiFENesin/DEXTROMETHORPHAN [Robitussin Dm] 10 ml PO Q6H #120 ml Comments: Your chest x-ray is clear and does not show signs of pneumonia. You did have some wheezing which is suggestive of bronchitis. You respiratory panel is positive for influenza A. I started you on steroids which may help with your wheezing and prescriptions for an inhaler and cough medication. I sent these prescriptions to [facility] in [place]. I would also recommend staying off of work through the weekend. If you have any worsening symptoms please return to the ER. Otherwise I would recommend Tylenol or ibuprofen as needed for fevers, plenty of fluids and rest. Forms: Activity restrictions Discharge Date/Time: 08/10/22 17:27
[2022-08-10 16:59] LABS: B. PARAPERTUSSIS- RESP PCR PAN NOT DETECTED; B. PERTUSSIS- RESP PCR PANEL NOT DETECTED; C. PNEUMONIAE- RESP PCR PANEL NOT DETECTED; CORONAVIRUS 229E-RESP PCR NOT DETECTED; CORONAVIRUS HKU1-RESP PCR NOT DETECTED; CORONAVIRUS NL63-RESP PCR NOT DETECTED; CORONAVIRUS OC43-RESP PCR NOT DETECTED; HUMAN METAPNEUMOVIRUS NOT DETECTED; INFLUENZA A H3- RESP PCR PANEL DETECTED; INFLUENZA B - RESP PCR PANEL NOT DETECTED; M. PNEUMONIAE- RESP PCR PANEL NOT DETECTED; PARAINFLUENZA VIRUS 1 NOT DETECTED; PARAINFLUENZA VIRUS 2 NOT DETECTED; PARAINFLUENZA VIRUS 3 NOT DETECTED; PARAINFLUENZA VIRUS 4 NOT DETECTED; RHINOVIRUS/ENTEROVIRUS NOT DETECTED; RSV- RESP PCR PANEL NOT DETECTED; SARS-CoV-2 -RESP PCR PANEL NOT DETECTED
--- NOTE | 2022-08-10 17:00 | XRAY Report ---
PROCEDURE: Chest 1 View X-Ray INDICATIONS: cough/SOA TECHNIQUE: One view of the chest was acquired. COMPARISON: None. FINDINGS: Surgical changes and devices: None. Lungs and pleura: No pleural effusions or pneumothorax. Lungs are clear. Mediastinum: Mediastinal contours appear normal. Heart size is normal. Bones and chest wall: No suspicious bony lesions. Overlying soft tissues appear unremarkable. IMPRESSION: No acute cardiopulmonary findings Reviewed by: Khris Mullins MD on 08/10/2022 3:59 PM [facility] Approved by: Khris Mullins MD on 08/10/2022 3:59 PM [facility] Station ID: [id number]
[2022-08-10] MEDS ORDERED: predniSONE 20 MG TABLET PO STA (17:15)
[2022-08-10 17:27] VITALS: BP 137/76
== END 2022-08-10 17:27 | disposition home or self-care (01) ==
LOC: ED 15:27
DX: J10.1 Influenza due to other identified influenza virus with other respiratory manifestations (principal); J40 Bronchitis, not specified as acute or chronic; Z86.16 Personal history of COVID-19; F17.200 Nicotine dependence, unspecified, uncomplicated
CPT/HCPCS: 71045; 87633; 94640; 99282; 99284; A9270; J7512

== ENCOUNTER 2022-09-06 19:44 | Outpatient (CLI) | payer MEDICAID, OTHER | END 2022-09-06 23:59 | disposition critical access hospital (66) | LOC: EMS 19:44 | DX: M54.2 Cervicalgia (principal); M54.6 Pain in thoracic spine; V49.40XA Driver injured in collision with unspecified motor vehicles in traffic accident, initial encounter; Y92.413 State road as the place of occurrence of the external cause | CPT/HCPCS: A0425; A0429; A0999 ==

== ENCOUNTER 2022-09-06 20:06 | Emergency (ER) | payer OTHER, MEDICAID ==
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
[2022-09-06] MEDS ORDERED: LIDOCAINE PATCH 5% TOP STA (22:31)
[2022-09-06] MEDS ORDERED: CYCLOBENZAPRINE 10 MG TABLET PO STA (22:31)
[2022-09-06] MEDS ORDERED: IBUPROFEN 800 MG TABLET PO STA (22:31)
[2022-09-06 22:43] VITALS: BP 124/77
== END 2022-09-06 22:42 | disposition home or self-care (01) ==
LOC: EDUNIT# → ED 20:06
DX: T14.8XXA Other injury of unspecified body region, initial encounter (principal); V49.40XA Driver injured in collision with unspecified motor vehicles in traffic accident, initial encounter; F17.200 Nicotine dependence, unspecified, uncomplicated
CPT/HCPCS: 70450; 72125; 72128; 99282; 99284; A9270

== ENCOUNTER 2023-04-24 10:44 | Emergency (ER) | payer MEDICAID ==
--- NOTE | 2023-04-24 11:17 | ED Physician Documentation ---
PD HPI CHEST PAIN - Stated complaint Stated Complaint: CHEST PX - Chief complaint Chief Complaint: Cardiac - History obtained from History obtained from: Patient - Additional information Additional information: 43-year-old gentleman who was seen for new onset A-fib by my partner last week and cardioverted out of it. Prior to that has no history of heart problems. He had an echo on that date and was noted to have a 4 cm aorta. Since then he has been having on and off sharp pain to the left of the sternum which radiates to the back. Its been constant since yesterday. Its associate with dizziness and some shortness of breath. No pedal edema or calf pain. No hemoptysis. PD PAST MEDICAL HISTORY - Past Medical History Cardiovascular: Atrial fibrillation Respiratory: None Neuro: None Endocrine/Autoimmune: None GI: None - Past Surgical History Past Surgical History: Yes HEENT: Tonsil/Adenoidectomy - Present Medications Home Medications: Ambulatory Orders Medication Instructions Recorded Confirmed Cyclobenzaprine [Flexeril] 10 mg PO TID PRN #20 tablet 09/06/22 04/24/23 Potassium Chloride 10 meq PO DAILY #10 tab 04/17/23 04/24/23 dilTIAZem HCL [Diltiazem 24Hr ER] 120 mg PO DAILY 30 Days #30 cap 04/17/23 04/24/23 - Allergies Allergies/Adverse Reactions: Allergies Allergy/AdvReac Type Severity Reaction Status Date / Time No Known Drug Allergies Allergy Verified 09/06/22 20:18 - Social History Does the pt smoke?: Yes Smoking Status: Current every day smoker Does the pt drink ETOH?: No Does the pt have substance abuse?: No - Immunizations Immunizations are current?: No PD ED PE NORMAL - Vitals Vital signs reviewed: Yes - General General: Alert and oriented X 3, No acute distress - HEENT HEENT: Other (Poor dentition) - Neck Neck: Supple, no meningeal sign, No bony TTP - Cardiac Cardiac: RRR, No murmur - Respiratory Respiratory: No respiratory distress, Clear bilaterally - Abdomen Abdomen: Non tender - Extremities Extremities: No edema, No calf tenderness / cord - Neuro Neuro: Alert and oriented X 3, Normal speech Results - Vitals Vitals: Vital Signs - 24 hr 04/24/23 04/24/23 04/24/23 10:49 11:22 11:32 Temperature 36.8 C Heart Rate 55 L 54 L 57 L Respiratory 18 15 15 Rate Blood Pressure 115/101 H 128/89 H 127/78 O2 Saturation 99 100 99 04/24/23 04/24/23 04/24/23 12:27 12:30 13:19 Temperature Heart Rate 53 L 51 L 54 L Respiratory 17 18 12 Rate Blood Pressure 132/92 H 122/87 H 126/81 H O2 Saturation 100 100 98 Oxygen O2 Source Room air - EKG (time done) 1045 EKG releavant findings:: EKG personally interpreted by author of this note. Relevant findings are: Rate: Rate (enter#) (53) Rhythm: NSR [place]: Normal Intervals: Normal CA QRS: Normal Ischemia: Non specific changes Compare to prior EKG: Changed from prior EKG (Compared with April 17, 2023 he is now in normal sinus rhythm, not atrial fibrillation. He has continued nonspecific T wave flattening inferiorly and no change in the QRS or ST segments.) - Labs Labs: Laboratory Tests 04/24/23 04/24/23 04/24/23 11:05 11:05 11:05 WBC 7.7 RBC 5.05 Hgb 15.6 Hct 46.6 MCV 92.3 MCH 30.9 MCHC 33.5 RDW 12.8 Plt Count 257 MPV 11.0 Neut # (Auto) 5.2 Lymph # (Auto) 1.7 Cooper # (Auto) 0.6 Eos # (Auto) 0.1 Baso # (Auto) 0.1 Absolute Nucleated RBC 0.00 Nucleated RBC % 0.0 Sodium 138 Potassium 4.1 Chloride 103 Carbon Dioxide 28 Anion Gap 7.0 BUN 13 Creatinine 0.9 Estimated GFR (MDRD) 92 Glucose 105 H Calcium 9.6 Total Bilirubin 0.5 AST 14 ALT 11 Alkaline Phosphatase 79 Troponin I High Sens 4.0 Total Protein 7.5 Albumin 4.5 Globulin 3.0 Albumin/Globulin Ratio 1.5 Lipase 18 - Rads (name of study) Single view chest x-ray is unremarkable Relevant Findings:: Final report received, EMP independent interpretation of test CT angiography of the chest, aortic protocol was negative. Relevant Findings:: Final report received, EMP independent interpretation of test PD Medical Decision Making - ED course ED course: 43-year-old gentleman with on and off chest pain since he had A-fib a week ago and was cardioverted. The pain has been more constant for the last 2 days. His ischemic work-up was negative with unchanged ST segments and QRS complexes on EKG, he is in sinus rhythm now. I did note the prior echo showed dilatation of the aorta and given the radiation to the back aortic dissection was considered but CT angiography rules that out. Pain was only mild here and given the negative troponin with ongoing pain for at least a day and a half, a single troponin should be predictive. Recommended follow-up with cardiology for consultation and likely stress testing and he voices understanding. Prior to discharge I was able discussed the case with Dr. Santos, associate professor of literature with [facility] and they will call him to arrange for expedited follow-up. Departure - Departure Disposition: 01 Home, Self Care Clinical Impression: Chest pain Qualifiers: Chest pain type: unspecified Qualified Code(s): R07.9 - Chest pain, unspecified Condition: Good Record reviewed to determine appropriate education?: Yes Instructions: ED Chest Pain Atypical Unkn Cause Comments: Thankfully, at this point there is no evidence of recurrence of your atrial fibrillation nor any active heart disease or problems with your aorta. You should follow-up with a educational technology coordinator, for consultation and likely stress testing. 1 option would be [facility] cardiology in [place], the phone number is [phone]. Call for next available appointment. You can continue the current medications and I would also recommend a baby aspirin (81 mg) every day. Return if worse. Forms: PCP List
[2023-04-24 11:20] LABS: BASOPHILS # (AUTO) 0.1 10^3/uL (0.0-0.1); BASOPHILS % (AUTO) 1.2 %; EOSINOPHILS # (AUTO) 0.1 10^3/uL (0.0-0.7); EOSINOPHILS % (AUTO) 1.7 %; HCT - HEMATOCRIT 46.6 % (42.0-52.0); HGB - HEMOGLOBIN 15.6 g/dL (14.0-18.0); LYMPHOCYTES # (AUTO) 1.7 10^3/uL (1.5-3.5); LYMPHOCYTES % (AUTO) 21.5 %; MEAN CORPUSCULAR HEMOGLOBIN 30.9 pg (27.0-31.0); MEAN CORPUSCULAR HGB CONC 33.5 g/dL (32.0-36.0); MEAN CORPUSCULAR VOLUME 92.3 fL (80.0-94.0); MONOCYTES # (AUTO) 0.6 10^3/uL (0.0-1.0); MONOCYTES % (AUTO) 7.9 %; NEUTROPHILS # (AUTO) 5.2 10^3/uL (1.5-6.6); NEUTROPHILS % (AUTO) 67.4 %; PLT - PLATELET COUNT 257 10^3/uL (130-450); RED BLOOD COUNT 5.05 10^6/uL (4.70-6.10); RED CELL DISTRIBUTION WIDTH 12.8 % (12.0-15.0); WHITE BLOOD COUNT 7.7 x10^3/uL (4.8-10.8)
[2023-04-24] MEDS: ACETAMINOPHEN 500 MG TABLET PO STA (11:24)
[2023-04-24] MEDS: NITROGLYCERIN SL 0.4 MG TABLET SL STA ×2 (11:25→12:25)
--- NOTE | 2023-04-24 11:38 | XRAY Report ---
PROCEDURE: Chest 1 View X-Ray INDICATIONS: Chest pain TECHNIQUE: One view of the chest was acquired. COMPARISON: None. FINDINGS: Surgical changes and devices: None. Lungs and pleura: No pleural effusions or pneumothorax. Lungs are clear. Mediastinum: Mediastinal contours appear normal. Heart size is normal. Bones and chest wall: No suspicious bony lesions. Overlying soft tissues appear unremarkable. IMPRESSION: No acute cardiopulmonary process. Reviewed by: Anny Benavides MD on 04/24/2023 11:37 AM PDT Approved by: Anny Benavides MD on 04/24/2023 11:37 AM PDT Station ID: [id number]
[2023-04-24 11:43] LABS: ALBUMIN 4.5 g/dL (3.2-5.5); ALBUMIN/GLOBULIN RATIO 1.5 (1.0-2.2); BILIRUBIN,TOTAL 0.5 mg/dL (0.2-1.0); CALCIUM 9.6 mg/dL (8.5-10.3); CREATININE 0.9 mg/dL (0.6-1.3); POTASSIUM 4.1 mmol/L (3.5-4.5); TOTAL PROTEIN 7.5 g/dL (6.4-8.9)
[2023-04-24] MEDS ORDERED: iohexoL-300 100 ML VIAL ONE (11:53)
[2023-04-24] MEDS: NITROGLYCERIN 2% PASTE TOP STA (12:26)
--- NOTE | 2023-04-24 12:47 | CT Report ---
PROCEDURE: ANGIO CHEST W/WO INDICATIONS: Chest pain, known dilated aorta, aorta protocol CONTRAST: omni 300 80ml TECHNIQUE: After the administration of intravenous contrast, 2 mm axial images were acquired from the pulmonary apices to the posterior costophrenic angles during the arterial phase. In addition, 1 mm lung kernel and 5 mm soft tissue kernel reconstructions were performed. 3-dimensional coronal oblique maximum int ensity projection (MIP) reformats, 8 mm axial MIP, and 5 mm coronal and sagittal MPR reformats were t hen performed through the thorax. For radiation dose reduction, the following was used: automated exp osure control, adjustment of mA and/or kV according to patient size. COMPARISON: 01/05/2021 FINDINGS: Image quality: Good Lungs and pleura:No drainable pleural effusion or pneumothorax. Mild scattered atelectasis. No pulmon susan nodules identified that requires dedicated follow-up imaging per Fleischner guidelines. A fissura l nodule is seen in the right lung (7/140). Mediastinum, heart, and esophagus: On noncontrast imaging, no evidence of intramural hematoma. On pos tcontrast imaging, no evidence of acute dissection or aneurysmal dilation. No central pulmonary embol ism identified. Overall heart size within normal limits. No pathologic enlarged lymph nodes. Chest wall and thyroid: Unremarkable Upper abdomen: No gross abnormality on these limited arterial phase images. Bones: No acute or suspicious osseous finding. IMPRESSION: No acute thoracic abnormality. No evidence of acute aortic syndrome. Other findings as above. Reviewed by: Ed Dietrich MD on 04/24/2023 12:45 PM PDT Approved by: Ed Dietrich MD on 04/24/2023 12:45 PM PDT Station ID: [id number]
[2023-04-24 13:23] VITALS: BP 126/81
[2023-04-24] MEDS: iohexoL-300 100 ML VIAL IVP ONE (15:16)
== END 2023-04-24 14:13 | disposition home or self-care (01) ==
LOC: ED 10:44
DX: R07.9 Chest pain, unspecified (principal); I48.91 Unspecified atrial fibrillation; F17.200 Nicotine dependence, unspecified, uncomplicated
CPT/HCPCS: 36415; 80053; 83690; 84484; 85025; 93005; 99283; 99284

== ENCOUNTER 2023-11-23 10:00 | Outpatient (CLI) | payer MEDICAID, OTHER ==
--- NOTE | 2023-11-24 09:37 | XRAY Report ---
PROCEDURE: Knee 3V BL INDICATIONS: PAIN IN RIGHT KNEE TECHNIQUE: 3 views of each knee(s) were acquired. COMPARISON: None. FINDINGS: Right: No fractures or dislocations. No suspicious bony lesions. Mild degenerative joint disease. Minimal joint space narrowing with weightbearing in the medial femorotibial compartment. Small knee joint effusion. No suspicious soft tissue calcifications or masses. Left: No fractures or dislocations. No suspicious bony lesions. Moderate degenerative joint disea se. [id number] joint space narrowing with weightbearing in the medial femorotibial compartmen t. There is a corticated ossicle in the area of the tibial tubercle at the patellar tendon insertion. Small knee joint effusion. No suspicious soft tissue calcifications or masses. IMPRESSION: 1. Degenerative joint disease, moderate in left knee and mild in right knee. 2. Corticated ossicle in the area of the tibial tubercle at the patellar tendon insertion suggesting [place]-Schlatter disease. 3. Small knee joint effusion bilaterally. Reviewed by: Lila Da Silva MD on 11/24/2023 9:36 AM PST Approved by: Lila Da Silva MD on 11/24/2023 9:36 AM PST Station ID: [id number]
== END 2023-11-23 10:15 | disposition home or self-care (01) ==
LOC: DI.N 10:00
PROVIDERS: ATTEND Physician Assistant Medical
DX: M17.0 Bilateral primary osteoarthritis of knee (principal); R93.6 Abnormal findings on diagnostic imaging of limbs; M25.462 Effusion, left knee; M25.461 Effusion, right knee

== ENCOUNTER 2024-01-03 10:14 | Outpatient (CLI) | payer OTHER | END 2024-01-03 10:15 | disposition home or self-care (01) | LOC: LAB.N 10:14 | PROVIDERS: ATTEND Physician Assistant Surgical | DX: M25.561 Pain in right knee (principal) | CPT/HCPCS: 36415; 85379 ==

== ENCOUNTER 2024-01-11 09:02 | Outpatient (CLI) | payer OTHER ==
[2024-01-11 12:36] LABS: ESTIMATED AVERAGE GLUCOSE 100 mg/dL (70-100); HEMOGLOBIN A1c% 5.1 % (4.27-6.07)
[2024-01-11 12:51] LABS: ALBUMIN 4.3 g/dL (3.2-5.5); ALBUMIN/GLOBULIN RATIO 1.5 (1.0-2.2); ALKALINE PHOSPHATASE 81 IU/L (42-121); ALT ALANINE AMINOTRANSFERASE 10 IU/L (10-60); AST ASPARTATE AMINOTRANSFERASE 14 IU/L (10-42); BILIRUBIN,TOTAL 0.6 mg/dL (0.2-1.0); BUN - BLOOD UREA NITROGEN 15 mg/dL (6-20); CALCIUM 9.8 mg/dL (8.5-10.3); CARBON DIOXIDE - CO2 30 mmol/L (21-32); CHLORIDE 103 mmol/L (101-111); CHOL/HDL RATIO 3.9 (<5.0); CHOLESTEROL 182 mg/dL; CREATININE 0.9 mg/dL (0.6-1.3); GFR - MDRD 92 (>89); GLUCOSE 103 mg/dL (74-104); HDL CHOLESTEROL 47 mg/dL; LDL CHOLESTEROL,CALCULATED 114 mg/dL; LDL/HDL RATIO 2.4 (<3.6); POTASSIUM 4.4 mmol/L (3.5-4.5); SODIUM 137 mmol/L (135-145); TOTAL PROTEIN 7.2 g/dL (6.4-8.9); TRIGLYCERIDES 107 mg/dL (48-352); VLDL CHOLESTEROL 21 mg/dL
[2024-01-11 13:01] LABS: THYROID STIMULATING HORMONE 0.75 uIU/mL (0.34-5.60)
== END 2024-01-11 09:03 | disposition home or self-care (01) ==
LOC: LAB.N 09:02
PROVIDERS: ATTEND Family Medicine
DX: R06.00 Dyspnea, unspecified (principal); I48.91 Unspecified atrial fibrillation
CPT/HCPCS: 36415; 80053; 80061; 83036; 83721; 84443

== ENCOUNTER 2024-04-23 05:51 | Outpatient (CLI) | payer OTHER ==
[2024-04-23] MEDS ORDERED: iohexoL-300 100 ML VIAL ONE (06:13)
[2024-04-23] MEDS: iohexoL-300 100 ML VIAL IVP ONE (08:12)
--- NOTE | 2024-04-23 15:27 | CT Report ---
PROCEDURE: Angio Chest INDICATIONS: ASCENDING AORTA DIALATION CONTRAST: OMNIPAQUE 300 80 ML TECHNIQUE: After the administration of intravenous contrast, 2 mm axial images were acquired from the pulmonary apices to the posterior costophrenic angles during the arterial phase. In addition, 1 mm lung kernel and 5 mm soft tissue kernel reconstructions were performed. 3-dimensional coronal oblique maximum int ensity projection (MIP) reformats, 8 mm axial MIP, and 5 mm coronal and sagittal MPR reformats were t hen performed through the thorax. For radiation dose reduction, the following was used: automated exp osure control, adjustment of mA and/or kV according to patient size. COMPARISON: CTA chest on April 24, 2023. FINDINGS: Image quality: Excellent. Large vessels: No filling defects within the opacified pulmonary arteries, accounting for motion and contrast timing. No aortic aneurysm. Ascending thoracic aorta at the level of the main pulmonary williams ry measures approximately 3.7 x 3.6 cm (46), previously 3.6 x 3.5 cm (remeasured, ). No atheros clerotic calcification. Origins of the great vessels are patent. Lungs and pleura: No consolidation. No pleural effusions. No pneumothorax. Compared to CT chest date d April 24, 2023, no new or enlarging solid pulmonary or consolidation. Stable noncalcified pulmonary nodule versus lymph node measuring 3 mm (854). Patent central airways. Mediastinum: Heart size is normal. No coronary vessel calcifications. No pericardial effusion. No med iastinal adenopathy by size criteria. Small hiatal hernia. Chest wall and lower neck: Thyroid is unremarkable. No axillary or supraclavicular adenopathy by size . Bones: No aggressive osseous abnormality. No acute fractures. Mild multilevel degenerative changes of the spine. Upper Abdomen: Unremarkable. IMPRESSION: No acute or significant pathology of the chest. Aorta is normal in caliber without ectasia or aneurys m. Reviewed by: Johnnie Muniz MD on 04/23/2024 3:26 PM PDT Approved by: Johnnie Muniz MD on 04/23/2024 3:26 PM PDT Station ID: [id number]
== END 2024-04-23 05:52 | disposition home or self-care (01) ==
LOC: LAB 05:51
PROVIDERS: ATTEND Family Medicine
DX: I77.810 Thoracic aortic ectasia (principal); I48.0 Paroxysmal atrial fibrillation
CPT/HCPCS: 36415; 71275; 82565; Q9967